=== PATIENT | male | born 1990 | race African-American/Black ===

== ENCOUNTER 2025-05-02 10:24 | Outpatient (REF) | payer OTHER, SELFPAY ==
[2025-05-02 17:36] LABS: Appearance Urine Clear; Glucose Urine UA Negative (Negative); PH 6.5 (5.0-9.0); Specific Gravity - Urine >= 1.030 (1.005-1.025); UMIC TRIGGER UACC YES
[2025-05-02 17:39] LABS: MANUAL DIFF FLAG NO
[2025-05-02 17:47] LABS: Hematocrit 41.7 % (42.0-52.0); Hemoglobin 13.1 g/dl (14.0-18.0); Imm Gran Abs Auto 0.03 X10*3/uL (0.00-0.03); Imm Gran Pct Auto 0.4 % (0.0-0.4); Lymphocytes Absolute Auto 1.8 X10*3/uL (1.2-4.9); Mean Corpuscular HGB Conc 31.4 g/dl (31.0-36.0); Mean Corpuscular Hemoglobin 25.0 pg (27.0-33.0); Mean Corpuscular Volume 79.7 fL (80.0-98.0); NRBC Abs Auto 0.000 X10*3/uL (0.0-0.012); NRBC Pct Auto 0.0 /100WBC (0.0-0.2); Platelet Count 341 X10*3/uL (160-400); Red Blood Count 5.23 X10*6/uL (4.60-5.80); White Blood Count 8.1 X10*3/uL (4.8-10.8)
[2025-05-02 17:55] LABS: Total Hemoglobin (HGBA1C) 3420.6258 umol/L
[2025-05-02 18:03] LABS: Alanine Aminotransferase 28 U/L (0-40); Albumin Level 4.7 g/dL (3.5-5.0); Alkaline Phosphatase 51 U/L (39-117); Anion Gap 12 (12-20); Aspartate Amino Transferase 33 U/L (5-37); Blood Urea Nitrogen 19 mg/dL (9-16); Calcium 9.1 mg/dL (8.4-10.2); Carbon Dioxide 29 mmol/L (22-29); Chloride 104 mmol/L (96-108); Cholesterol 215 mg/dL (<200); Estimated Glomerular Filt Rate > 60; HDL Cholesterol 56 mg/dL (>40); Magnesium 2.0 mg/dL (1.6-2.6); Potassium 4.1 mmol/L (3.3-5.1); Sodium 141 mmol/L (135-145); Total Protein 7.6 g/dL (6.5-8.0); Triglycerides 97 mg/dL (<150)
[2025-05-03 11:02] LABS: CT PCR Urine NOT DETECTED (Not Detect.); NG PCR Urine NOT DETECTED (Not Detect.)
[2025-05-04 04:49] LABS: Syphilis Screen Nonreactive (Nonreactive)
[2025-05-04 05:05] LABS: HBS Num1 89.66 mIU/mL (0-7.99); HBsAGNum1 0.64 S/CO (0.00-0.99); HIV Num 1 0.05 S/CO (0.00-0.99); Hepatitis B Surface Antigen Negative (Negative); ~HepC Num1 0.15 S/CO (0.00-0.79); ~Hepatitis B Surface Antibody REACTIVE (Nonreactive); ~Hepatitis C Antibody Nonreactive (Nonreactive)
[2025-05-08 21:03] LABS: VITAMIN D (1,25 OH) D3 71 pg/mL; Vit D (1,25-Dihydroxy) Total 71 pg/mL (18-72); Vitamin D (1,25 OH) D2 <8 pg/mL
[2025-05-09 13:24] LABS: Chlamydia Pneumoniae Interp. Past Infection; Chlamydia Trachomatis IgA <1:16 titer (<1:16)
== END 2025-05-02 10:25 | disposition home or self-care (01) ==
LOC: HO.HKASLDS 10:24
PROVIDERS: PCP Student in an Organized Health Care Education/Training Program; Visit Provider Student in an Organized Health Care Education/Training Program
DX: Z76.89 Persons encountering health services in other specified circumstances (principal); Z11.4 Encounter for screening for human immunodeficiency virus [HIV]; Z13.1 Encounter for screening for diabetes mellitus; Z01.89 Encounter for other specified special examinations; M25.562 Pain in left knee; F43.21 Adjustment disorder with depressed mood; R03.0 Elevated blood-pressure reading, without diagnosis of hypertension; E66.812 Obesity, class 2; Z68.35 Body mass index [BMI] 35.0-35.9, adult; Z20.2 Contact with and (suspected) exposure to infections with a predominantly sexual mode of transmission; Z71.9 Counseling, unspecified; Z71.3 Dietary counseling and surveillance
CPT/HCPCS: 80053; 80061; 81001; 82652; 83036; 83735; 85025; 86631; 86632; 86706; 86780; 86803; 87340; 87389; 87491; 87591; 99202

== ENCOUNTER 2025-05-02 10:24 | Outpatient (AMB) | payer OTHER, SELFPAY ==
--- NOTE | 2025-05-02 10:26 | MHC.PC.OV ---
Vital Signs 05/02/25 10:38 Height 5 ft 9.09 in Weight 242 lb 2 oz BMI 35.7 BP 160/96 H Blood Pressure Location Lt brachial Position Sitting Respiration 16 Pulse 85 Pulse Source Pulse Oximeter Temp 97.8 F Temp Source Oral Pulse Oximetry (%) 97 Oxygen Delivery Method Room Air Intake Visit Reasons: New Patient-medication review Intake Note: establish care no meds Proof Inspector Required: No Accompanied by: Self / Same As Patient Allergies No Known Allergies Allergy (Verified 05/02/25 10:27) Tobacco use date assessed: 05/02/25 Dental Screening Dental Screen Date: 05/02/25 Did you have a dental visit in the last 12 months?: Yes Did you have a dental problem in the last 6 months where you did not have access to dental care?: No Was dental information given to patient?: Patient has dentist HPI HPI Comments History of Present Illness Details History of Present Illness The patient is a 35-year-old male presenting for a routine physical examination and evaluation of left knee pain. Left knee pain: - The patient reports persistent left knee pain, which has been present for several months. - The pain does not prevent him from engaging in activities such as running a half marathon, but it is consistently present during general activities. - He previously attended physical therapy four months ago but did not experience significant relief and did not follow up for further evaluation. - No imaging studies, such as an x-ray, have been conducted to date. Elevated blood pressure: - The patient has a history of elevated blood pressure, which was noted during the visit. - He attributes the elevation to anxiety and has undergone a seven-day evaluation, which concluded that medication was not necessary. Health Maintenance - Comprehensive metabolic panel, complete blood count, and lipid profile were ordered to assess overall health status. - Screening for Hepatitis B, Hepatitis C, and HIV was discussed and planned. - Screening for sexually transmitted infections, including chlamydia, gonorrhea, and syphilis, was offered. Review of Systems - Musculoskeletal: Reports persistent left knee pain. Denies any other joint pain or swelling. - Cardiovascular: Reports elevated blood pressure when anxious. Denies chest pain or palpitations. 10-point ROS reviewed and negative except as noted in HPI Current Substance Use - The patient reports minimal alcohol consumption and denies smoking. Substance Use History - The patient reports minimal alcohol consumption and denies smoking. Social History - The patient is employed in the and has been serving for 15 years. - He has been stationed in various locations, including [facility] and [facility]. - He has a 14-year-old child. Physical Exam General: No apparent distress. Alert and oriented x 3. Head: Normocephalic, atraumatic Eyes: Pupils equal, round, and reactive to light. Extraocular movements intact Throat: O ropharynx clear. Mucus membranes moist Neck: Supple. No l eft anterior descending artery distention. No jugular vein distention. No bruit. Cardiovascular: Regular rate and rhythm. Normal S1 and S2. No murmurs, rubs, or gallops Lungs: Clear to auscultation bilaterally. Breath sounds equal bilaterally. No rales, ronchi, or wheezes. Abdomen: Non-tender. Non-distended. Bowel sounds auscultated. No hepatosplenomegaly. No mass/rebound/guarding Extremities: Left knee pain reported. No c lubbing, cyanosis, and edema. 2+ pulses Neuro: Central nerves II-XII grossly intact. Motor/sensory intact. Reflexes 2. Gait normal Skin: Warm, dry, and intact. No rash. Discussion Notes I discussed with the patient the plan to obtain an x-ray of the left knee to evaluate the cause of pain. I also recommended a referral to physical therapy to strengthen the muscles around the knee. We discussed the importance of documenting these treatments for future benefits. Additionally, I ordered a comprehensive metabolic panel, complete blood count, and lipid profile to assess overall health. Screening for Hepatitis B, Hepatitis C, HIV, and sexually transmitted infections was also offered. The patient was advised to return for follow-up to discuss lab results and further management based on x-ray findings. Plan 1. Left Knee Pain - Plan to obtain an x-ray of the left knee to evaluate the cause of pain. - Referral to physical therapy to strengthen the muscles around the knee. 2. Elevated Blood Pressure - Monitor blood pressure and consider lifestyle modifications to manage anxiety-related elevations. Patient Instructions - Follow up for lab results and x-ray findings. - Attend physical therapy sessions as referred. - Monitor blood pressure and consider lifestyle changes to manage anxiety. [facility] Family History (Updated 05/02/25 @ 10:37 by Nancy Ivey MA) Father No problems noted. Mother No problems noted. Social History (Updated 05/02/25 @ 10:37 by Nancy Ivey MA) Housing: House Alcohol intake: current Alcohol intake frequency: holidays/special occasions only Patient Tobacco Use Status: Never used Tobacco service: Yes Current occupational status: employed Cognitive needs: No Hearing needs: No Vision needs: No Questionnaire PHQ-9 Over the last 2 weeks, how often have you been bothered by any of the following problems? 1. Little interest or pleasure in doing things: several days 2. Feeling down, depressed, or hopeless: several days 3. Trouble falling or staying asleep, or sleeping too much: more than half the days 4. Feeling tired or having little energy: several days 5. Poor appetite or overeating: not at all 6. Feeling bad about yourself - or that you are a failure or have let yourself or your family down: not at all 7. Trouble concentrating on things, such as reading the newspaper or watching television: several days 8. Moving or speaking so slowly that other people could have noticed. Or the opposite - being so fidgety or restless that you have been moving around a lot more than usual: not at all 9. Thoughts that you would be better off or of hurting yourself in some way: not at all Total score: 6 Depression Screening Interpretation: Positive Depression Screening Done: Yes Source: Developed by Drs. Orlin Dale, Karen Metzger, Mello Segura and colleagues, with an educational mi from [employer]. Thrive Questionnaire Date Thrive assessed: 05/02/25 I am a: Patient What is your living situation today?: I have a steady place to live Within the past 12 months, did the food you bought not last and you didn't have the money to get more?: Never true Within the past 12 months, did you worry whether your food would run out before you got money to buy more?: Never true Do you have trouble paying for medicines?: No Do you have trouble getting transportation to medical appointments?: No Do you have trouble paying your heating and electricity bill?: No Do you have trouble taking care of your child, family member or friend?: No Do you have trouble with day-to-day activities such as bathing, preparing meals, shopping, managing finances, etc.?: No Are you currently unemployed and looking for a job?: No Are you interested in more education?: No Please select the resources that you would like help with: None Currently or been in a relationship where the following occur: I choose not to answer THRIVE Score: 0 AUDIT C Alcohol Use Questionnaire (AUDIT-C) 1. How often do you have a drink containing alcohol?: Monthly or less 2. How many drinks containing alcohol do you have on a typical day when you are drinking?: 1 or 2 3. How often do you have six or more drinks on one occasion?: Never Total Score: 1 SHANTHI-7 AMB Questionnaire SHANTHI-7 Date SHANTHI - 7 assessed: 05/02/25 Feeling nervous, anxious, or on edge: 0 = Not at all Not being able to stop or control worryin = Not at all Worrying too much about different things: 1 = Several days Trouble relaxin = Not at all Being so restless that it is hard to sit still: 0 = Not at all Becoming easily annoyed or irritable: 0 = Not at all Feeling afraid as if something awful might happen: 0 = Not at all Total SHANTHI-7 score (0-4 normal; 5-9 mild; 10-14 moderate; 15-21 severe): 1 Source: Developed by Drs. Orlin Dale, Karen Metzger, Mello Segura and colleagues, with an educational mi from [employer]. Physical exam (Primary Care) Tobacco/Smoking Status: Tobacco use Status Tobacco use date assessed 05/02/25 05/02/25 10:30 Patient Tobacco Use Status Never used Tobacco 05/02/25 10:37 PHQ-9: PHQ-9 Score PHQ-9: Total score 6 05/02/25 10:30 Depression Screening Interpretation: Positive Thrive Assessment: Date of Thrive Assessment Date Thrive assessed 05/02/25 05/02/25 10:30 Currently or been in a relationship where the following occur: I choose not to answer Coding Level of Care Code New Pt Level 3 (52582) Diagnoses Establishing care with new doctor, encounter for Z76.89 Routine lab draw Z01.89 Counseling, unspecified Z71.9 Encounter for screening, unspecified Z13.9 Screening for depression Z13.31 Adjustment disorder with depressed mood F43.21 Hypertension screen Z13.6 Screening for diabetes mellitus Z13.1 Screening for lipoid disorders Z13.220 Screening for HIV (human immunodeficiency virus) Z11.4 Elevated blood pressure reading R03.0 Class 2 obesity E66.812 Left knee pain M25.562 Assessment & Plan Assessment & Plan (1) Establishing care with new doctor, encounter for: Code(s): Z76.89 - Persons encountering health services in other specified circumstances (2) Routine lab draw: Code(s): Z01.89 - Encounter for other specified special examinations (3) Counseling, unspecified: Code(s): Z71.9 - Counseling, unspecified (4) Encounter for screening, unspecified: Code(s): Z13.9 - Encounter for screening, unspecified (5) Screening for depression: Code(s): Z13.31 - Encounter for screening for depression (6) Adjustment disorder with depressed mood: Code(s): F43.21 - Adjustment disorder with depressed mood (7) Hypertension screen: Code(s): Z13.6 - Encounter for screening for cardiovascular disorders (8) Screening for diabetes mellitus: Code(s): Z13.1 - Encounter for screening for diabetes mellitus (9) Screening for lipoid disorders: Code(s): Z13.220 - Encounter for screening for lipoid disorders (10) Screening for HIV (human immunodeficiency virus): Code(s): Z11.4 - Encounter for screening for human immunodeficiency virus [HIV] (11) Elevated blood pressure reading: Code(s): R03.0 - Elevated blood-pressure reading, without diagnosis of hypertension (12) Class 2 obesity: Code(s): E66.812 - Obesity, class 2 (13) Left knee pain: Code(s): M25.562 - Pain in left knee Plan Orders: Orders Complete Blood Count Auto Diff Today Z13.9 - Encounter for screening, unspecified, Z76.89 - Persons encountering health services in other specified circumstances Hemoglobin A1c Today Z13.9 - Encounter for screening, unspecified, Z76.89 - Persons encountering health services in other specified circumstances Hepatitis B Surface Antibody Today Z13.9 - Encounter for screening, unspecified, Z76.89 - Persons encountering health services in other specified circumstances Hepatitis B Surface Antigen Today Z13.9 - Encounter for screening, unspecified, Z76.89 - Persons encountering health services in other specified circumstances Lipid Panel Today Z13.9 - Encounter for screening, unspecified, Z76.89 - Persons encountering health services in other specified circumstances Vitamin D 1,25 dihydroxy Today Z13.9 - Encounter for screening, unspecified, Z76.89 - Persons encountering health services in other specified circumstances XR knee LT 3V Today M25.562 - Pain in left knee PT Evaluation and Treatment Today M25.562 - Pain in left knee Chlamydia Species Ab Panel Today Z13.9 - Encounter for screening, unspecified, Z76.89 - Persons encountering health services in other specified circumstances CT NG by PCR Urine Today Z13.9 - Encounter for screening, unspecified, Z76.89 - Persons encountering health services in other specified circumstances Syphilis Screen Today Z13.9 - Encounter for screening, unspecified, Z76.89 - Persons encountering health services in other specified circumstances Comprehensive Met. Panel Today Z13.9 - Encounter for screening, unspecified, Z76.89 - Persons encountering health services in other specified circumstances Hepatitis C Antibody Today Z13.9 - Encounter for screening, unspecified, Z76.89 - Persons encountering health services in other specified circumstances HIV Ab/Ag Today Z13.9 - Encounter for screening, unspecified, Z76.89 - Persons encountering health services in other specified circumstances Magnesium Today Z13.9 - Encounter for screening, unspecified, Z76.89 - Persons encountering health services in other specified circumstances UA CC w/rflx Micro + Cult Today Z13.9 - Encounter for screening, unspecified, Z76.89 - Persons encountering health services in other specified circumstances
[2025-05-02 10:38] VITALS: BP 160/96; PULSE 85; RESP 16; TEMP 36.6; O2SAT 97; BMI 35.7
== END 2025-05-02 11:17 | disposition home or self-care (01) ==
LOC: HO.HMCFMS 10:25
PROVIDERS: PCP Student in an Organized Health Care Education/Training Program; Visit Provider Student in an Organized Health Care Education/Training Program
DX: Z76.89 Persons encountering health services in other specified circumstances (principal); Z01.89 Encounter for other specified special examinations; Z71.9 Counseling, unspecified; Z13.9 Encounter for screening, unspecified; Z13.31 Encounter for screening for depression; F43.21 Adjustment disorder with depressed mood; Z13.6 Encounter for screening for cardiovascular disorders; Z13.1 Encounter for screening for diabetes mellitus; Z13.220 Encounter for screening for lipoid disorders; Z11.4 Encounter for screening for human immunodeficiency virus [HIV]; R03.0 Elevated blood-pressure reading, without diagnosis of hypertension; E66.812 Obesity, class 2; M25.562 Pain in left knee

== ENCOUNTER 2025-07-06 08:27 | Outpatient (AMB) | payer OTHER, SELFPAY ==
[2025-07-06 08:36] VITALS: BP 120/74; PULSE 63; RESP 16; TEMP 37; O2SAT 97; BMI 34.0
--- NOTE | 2025-07-06 08:36 | A.OFFPC_ITS ---
Vital Signs 07/06/25 08:36 Height 5 ft 9.09 in Weight 231 lb BMI 34.0 BP 120/74 Blood Pressure Location Rt brachial Position Sitting Respiration 16 Pulse 63 Pulse Source Pulse Oximeter Temp 98.6 F Temp Source Oral Pulse Oximetry (%) 97 Oxygen Delivery Method Room Air Intake Visit Reasons: f/u reschedule from 06/20 Intake Note: establish care no meds Acds Block 1 Operator Required: No Accompanied by: Self / Same As Patient Allergies No Known Allergies Allergy (Verified 07/06/25 08:36) Tobacco use date assessed: 07/06/25 Dental Screening Dental Screen Date: 07/06/25 Did you have a dental visit in the last 12 months?: Yes Did you have a dental problem in the last 6 months where you did not have access to dental care?: No Was dental information given to patient?: Patient has dentist HPI HPI Comments History of Present Illness Details History of Present Illness The patient is a 35 year old individual presenting for a review of lab results and evaluation of a chronic dry cough. Chronic cough: The patient reports a persistent dry cough and a need to clear the throat approximately every five minutes for the past two months. The symptoms began after the patient had a cold, around the time the patient's son received a flu shot. The patient denies any mucus production, runny nose, or nasal congestion and also denies a metallic taste in the mouth upon waking. The patient states the symptoms are worse at the office and reports a history of mold in the office building, though it is uncertain if it was properly remediated. A humidifier was installed at the office a month ago with no change in symptoms. The patient also describes a sensation of losing air while talking, though denies feeling truly short of breath. G6PD deficiency: The patient has a known history of G6PD deficiency, which has been associated with a chronically low hemoglobin level. The patient is aware of the necessary dietary and medication restrictions, such as avoiding sulfa drugs and some beans. Hypercholesterolemia: Recent non-fasting lab work showed a total cholesterol of 215 mg/dL and an LDL of 140 mg/dL. Social History: - Employment: The patient works in an [employer] setting. - Housing/Work Environment: The patient reports a history of mold in the office building. Diagnostic Results: - CBC: White blood cells were noted to b e good. - Hemoglobin, hematocrit, and MCV: Noted to be a smidge at low. - Chemistry panel: Sodium, potassium, ch loride, kidney, and liver function tests were all normal. - Lipid panel (non-fasting): Total alejandra sterol 215 mg/dL, LDL 140 mg/dL, HDL 56 mg/dL. - Vitamin D: Level was good. - Urinalysis: Results were good. - Infectious disease screen: Negative fo r Hepatitis B, Hepatitis C, and HIV. - Vitals: Blood pressure was 120/74 mmHg . Past Medical History - G6PD deficiency - History of elevated blood pressure at a prior visit Health Maintenance - Lab results for CBC, chemistry panel, lipid panel, vitamin D, and urinalysis were reviewed. - Screening for Hepatitis B, Hepatitis C , and HIV were performed and results were negative. - Discussed G6PD deficiency and reviewed dietary and medication restrictions. [facility] Medical History (Updated 07/06/25 @ 08:55 by Too Rey MD) Class 1 obesity Anemia G6PD deficiency Family History Father No problems noted. Mother No problems noted. Social History Housing: House Alcohol intake: current Alcohol intake frequency: holidays/special occasions only Patient Tobacco Use Status: Never used Tobacco service: Yes Current occupational status: employed Current occupation: [employer] Cognitive needs: No Hearing needs: No Vision needs: No Questionnaire PHQ-9 Over the last 2 weeks, how often have you been bothered by any of the following problems? 1. Little interest or pleasure in doing things: several days 2. Feeling down, depressed, or hopeless: several days 3. Trouble falling or staying asleep, or sleeping too much: more than half the days 4. Feeling tired or having little energy: several days 5. Poor appetite or overeating: not at all 6. Feeling bad about yourself - or that you are a failure or have let yourself or your family down: not at all 7. Trouble concentrating on things, such as reading the newspaper or watching television: several days 8. Moving or speaking so slowly that other people could have noticed. Or the opposite - being so fidgety or restless that you have been moving around a lot more than usual: not at all 9. Thoughts that you would be better off or of hurting yourself in some way: not at all Total score: 6 Depression Screening Interpretation: Positive Depression Screening Done: Yes Source: Developed by Drs. Orlin Dale, Karen Metzger, Mello Segura and colleagues, with an educational mi from [employer]. Thrive Questionnaire Date Thrive assessed: 07/06/25 I am a: Patient What is your living situation today?: I have a steady place to live Within the past 12 months, did the food you bought not last and you didn't have the money to get more?: Never true Within the past 12 months, did you worry whether your food would run out before you got money to buy more?: Never true Do you have trouble paying for medicines?: No Do you have trouble getting transportation to medical appointments?: No Do you have trouble paying your heating and electricity bill?: No Do you have trouble taking care of your child, family member or friend?: No Do you have trouble with day-to-day activities such as bathing, preparing meals, shopping, managing finances, etc.?: No Are you currently unemployed and looking for a job?: No Are you interested in more education?: No Please select the resources that you would like help with: None Currently or been in a relationship where the following occur: I choose not to answer THRIVE Score: 0 AUDIT C Alcohol Use Questionnaire (AUDIT-C) 1. How often do you have a drink containing alcohol?: Monthly or less 2. How many drinks containing alcohol do you have on a typical day when you are drinking?: 1 or 2 3. How often do you have six or more drinks on one occasion?: Never Total Score: 1 SHANTHI-7 AMB Questionnaire SHANTHI-7 Date SHANTHI - 7 assessed: 07/06/25 Feeling nervous, anxious, or on edge: 0 = Not at all Not being able to stop or control worryin = Not at all Worrying too much about different things: 1 = Several days Trouble relaxin = Not at all Being so restless that it is hard to sit still: 0 = Not at all Becoming easily annoyed or irritable: 0 = Not at all Feeling afraid as if something awful might happen: 0 = Not at all Total SHANTHI-7 score (0-4 normal; 5-9 mild; 10-14 moderate; 15-21 severe): 1 Source: Developed by Drs. Orlin Dale, Karen Metzger, Mello Segura and colleagues, with an educational mi from [employer]. Review of Systems Narrative Review of Systems - Respiratory: Reports a persistent dry cough for two months and a sensation of losing air when talking. - HEENT: Reports a frequent need to clear the throat. - Denies rhinorrhea, nasal congestion, or a metallic taste in the mouth. 10-point ROS reviewed and negative except as noted in HPI Physical exam (Primary Care) Vital Signs: Last Vital Signs Temp 98.6 F 07/06/25 08:36 Pulse 63 07/06/25 08:36 Resp 16 07/06/25 08:36 BP 120/74 07/06/25 08:36 Pulse Ox 97 07/06/25 08:36 Oxygen Delivery Method Room Air 07/06/25 08:36 BMI result Body Mass Index 34.0 Tobacco/Smoking Status: Tobacco use Status Tobacco use date assessed 07/06/25 07/06/25 08:37 Patient Tobacco Use Status Never used Tobacco 07/06/25 08:37 PHQ-9: PHQ-9 Score PHQ-9: Total score 6 07/06/25 08:48 Depression Screening Interpretation: Positive Thrive Assessment: Date of Thrive Assessment Date Thrive assessed 07/06/25 07/06/25 08:37 Currently or been in a relationship where the following occur: I choose not to answer Narrative Physical Exam General: Well-appearing, in no acute distress. Vital signs: Blood pressure 120/74, within normal limits. HEENT: Normocephalic, atraumatic. PERRLA, EOMI. Conjunctiva clear, sclera anicteric. Oropharynx clear, mucous membranes moist. TMs intact bilaterally. Neck: Supple, no lymphadenopathy, no thyromegaly, no JVD or carotid bruits. Cardiovascular: RRR, normal S1/S2, no murmurs, rubs, or gallops. Peripheral pulses 2+ and symmetric. No edema. Respiratory: Lungs clear to auscultation bilaterally, no wheezes, rales, or rhonchi. Normal effort, though patient reports feeling like a shortness of breath when talking, possibly related to environmental factors at work. Abdomen: Soft, non-tender, non-distended. Normoactive bowel sounds. No hepatosplenomegaly, no masses. MSK: Full range of motion, no joint swelling or deformity. Normal gait. Skin: Warm, dry, intact. No rashes, lesions, or pallor. Neuro: Alert and oriented x3. Cranial nerves II-XII intact. Strength 5/5 throughout. Sensation intact. Reflexes 2+ symmetric. Normal coordination and gait. Psych: Appropriate mood and affect. Normal judgment and insight. Office Procedures Flu Questionnaire Does the patient have a severe egg allergy?: No Does the patient have severe life threatening allergies?: No Does the patient have a fever or illness today?: No Has the patient ever had Guillain-[place] Syndrome?: No Has the patient ever had any past reaction to a flu shot?: No Immunizations Fluarix [id number] (PF) 45 mcg (15 mcg x 3)/0.5 mL IM syringe Performing Provider: Too Rey MD [facility] Documented (not given) by: Kenya Navarrete CMA on 07/06/25 08:48 Reason Not Given: Patient Refused Coding Level of Care Code Est Pt Level 3 (20416) Diagnoses G6PD deficiency D75.A Anemia D64.9 Class 1 obesity E66.811 Assessment & Plan Assessment & Plan (1) G6PD deficiency: Code(s): D75.A - Agktrpd-1-csdgtengb dehydrogenase (G6PD) deficiency without anemia Category: Medical (2) Anemia: Code(s): D64.9 - Anemia, unspecified Category: Medical (3) Class 1 obesity: Code(s): E66.811 - Obesity, class 1 Category: Medical Plan Consent Patient was informed and verbally consented to the use of an ambient scribe for clinic note documentation during this visit. Plan 1. Chronic Cough - The cough may be due to an environmental trigger at the patient's office, such as mold. - Recommended a trial of wearing a mask at work to assess for improvement in symptoms. - Advised using cough drops to keep the throat moist for symptomatic relief. - The patient should follow up if symptoms persist. 2. Review Of Lab Results - Lab results were reviewed. - The slightly low hemoglobin is considered a chronic finding related to G6PD deficiency and requires no acute intervention. - The non-fasting cholesterol elevation is not considered clinically significant at this time, given the good HDL of 56 mg/dL; no immediate action is planned. - All other reviewed labs, including WBC, chemistry, vitamin D, urine, and infectious disease screening, were normal and reassuring. 3. G6pd Deficiency - The patient's understanding of the condition and necessary precautions was confirmed. - Continue chronic management and avoidance of known triggers. Discussion Notes I reviewed the lab results with the patient, noting that most values, including WBC, kidney and liver function, vitamin D, urinalysis, and infectious disease screens, were normal. I explained that the slightly low hemoglobin is likely a chronic finding related to the patient's known G6PD deficiency. We discussed that the elevated cholesterol on the non-fasting panel is likely not accurate and is not concerning at this time, especially with a good HDL level. Regarding the two-month history of a dry cough, I explained that it is likely an environmental trigger from the patient's office, possibly related to a history of mold. I recommended the patient trial wearing a mask at work to test this hypothesis and use cough drops for symptomatic relief. I advised the patient to return for re-evaluation if the cough persists. Patient Instructions - Your recent lab results were reviewed and are mostly normal and reassuring. - The slightly elevated cholesterol is likely because you did not fast for the test and is not a concern at this time. - To help with your cough, try wearing a mask while you are at work to see if something in the air is causing irritation. - Use cough drops to help keep your throat moist and reduce coughing. - Please make an appointment to come back if your cough does not improve. Medical Decision Making The patient is a 35-year-old individual presenting for lab review and evaluation of a two-month chronic dry cough. The cough appears to be exacerbated by an environmental factor, as it is worse in the patient's office, which has a reported history of mold. Given the lack of rhinorrhea or other upper respiratory symptoms, an environmental or allergic trigger is more likely than post-viral or post-nasal drip etiologies. The diagnostic plan involves a trial of wearing a mask at work to confirm an environmental trigger, with symptomatic treatment using cough drops. Lab results review was reassuring; the mild anemia is consistent with the patient's known G6PD deficiency, and the non-fasting hypercholesterolemia is not clinically significant at this time and requires no immediate intervention. The patient's blood pressure was normal at this visit. The plan is to observe and follow up if symptoms do not resolve with the suggested interventions. Total Time Statement 20 min Total time spent caring for the patient today includes pre-visit chart review, documentation, review of laboratory and diagnostic imaging results, medication reconciliation, medically necessary evaluation, counseling on diagnoses, care coordination, ordering appropriate tests and medications, review of tests performed by other providers, reporting test results to the patient, and communication with other healthcare providers. Orders: Orders Influenza [id number] Immunization Today Z23 - Encounter for immunization
== END 2025-07-06 08:55 | disposition home or self-care (01) ==
LOC: HO.HMCFMS 08:27
PROVIDERS: PCP Student in an Organized Health Care Education/Training Program; Visit Provider Student in an Organized Health Care Education/Training Program
DX: D75.A Glucose-6-phosphate dehydrogenase (G6PD) deficiency without anemia (principal); D64.9 Anemia, unspecified; E66.811 Obesity, class 1; Z23 Encounter for immunization

== ENCOUNTER → 2025-07-06 08:27 | Outpatient (BNVA) | payer OTHER, SELFPAY | PROVIDERS: PCP Student in an Organized Health Care Education/Training Program; Visit Provider Student in an Organized Health Care Education/Training Program | DX: Z71.2 Person consulting for explanation of examination or test findings (principal); R05.3 Chronic cough; E78.00 Pure hypercholesterolemia, unspecified; D75.1 Secondary polycythemia; D64.9 Anemia, unspecified; E66.811 Obesity, class 1; Z13.31 Encounter for screening for depression; Z13.39 Encounter for screening examination for other mental health and behavioral disorders | CPT/HCPCS: 90471; 96127; 99212 ==